=== PATIENT | female | born 1975 | race Caucasian/White ===

== ENCOUNTER → 2016-09-16 | Outpatient (CLI) | payer OTHER, MEDICAID ==
[~2016-09-16] MED LIST: AUGMENTIN875 MG PO; HUMALOG100 UNIT/1 SQ; LANTUS100 UNITS/ SQ; PERCOCET 5-3251 EACH PO; PLAVIX75 MG PO; THERA1 EACH PO; ULTRAM50 MG PO
== END | disposition home or self-care (01) ==
LOC: RAD.S 16:17
DX: N93.9 Abnormal uterine and vaginal bleeding, unspecified (principal); N83.202 Unspecified ovarian cyst, left side